=== PATIENT | female | born 1970 | race Hispanic/Latino ===

== ENCOUNTER 2021-10-27 10:21 | Emergency (ER) | payer BC, OTHER ==
[~2021-10-27] VITALS: Ht 162.6 cm; Wt 76.2 kg
[2021-10-27] MEDS ORDERED: ONDANSETRON 4MG INJ IVP ONE (11:00)
[2021-10-27] MEDS ORDERED: KETOROLAC 30MG VIAL (30MG/ML) IVP ONE (11:00)
[2021-10-27] MEDS ORDERED: MORPHINE 4 MG SYG IVP ONE (11:00)
[2021-10-27] MEDS ORDERED: 0.9%NACL 1000ML 1,000 ML IV ONE (11:00)
[2021-10-27 11:09] LABS: BASOPHILS % (AUTO) 0.4 % (0.0-5.0); EOSINOPHILS % (AUTO) 1.1 % (0.0-8.0); HEMATOCRIT 41.2 % (36-48); MEAN CORPUSCULAR HEMOGLOBIN 28.9 pg (27.0-33.0); MEAN CORPUSCULAR VOLUME 84.9 fL (79-99); MONOCYTES % (AUTO) 6.3 % (3.0-13.0); NEUTROPHILS % (AUTO) 72.8 % (40.0-77.0); PLATELET COUNT (AUTO) 268 K/uL (130-400); RED BLOOD CELL COUNT(AUTO) 4.85 MIL/uL (4.00-5.50); RED CELL DISTRIBUTION WIDTH 12.3 % (11.0-15.5); WHITE BLOOD COUNT (AUTO) 7.5 K/uL (4.8-10.8)
[2021-10-27 11:12] LABS: APPEARANCE,URINE CLEAR (CLEAR); BILIRUBIN,URINE NEGATIVE (NEGATIVE); COLOR,URINE YELLOW (YELLOW); GLUCOSE, URINE (UA) >=1000 mg/dL (NEGATIVE); KETONES,URINE 15 mg/dL (NEGATIVE); LEUKOCYTE ESTERASE ,URINE NEGATIVE (NEGATIVE); NITRATE,URINE NEGATIVE (NEGATIVE); OCCULT BLOOD,URINE NEGATIVE (NEGATIVE); PROTEIN,URINE NEGATIVE (NEGATIVE); UROBILINOGEN,URINE 0.2 mg/dL (0.2-1.0)
[2021-10-27 11:27] LABS: ALBUMIN 3.3 g/dL (3.5-5.0); CREATININE 0.9 mg/dL (0.5-1.5); POTASSIUM 3.8 mmol/L (3.5-5.1); TOTAL PROTEIN, SERUM 7.1 g/dL (6.0-8.3)
[2021-10-27 11:55] LABS: BACTERIA,URINE Rare /HPF (None Seen); RBC,URINE None Seen /HPF (0-1); WBC,URINE None Seen /HPF (0-1)
[2021-10-27] MEDS ORDERED: INSULIN HUMULIN R 100 UNIT/ML 3ML SQ ONE (12:00)
[2021-10-27] MEDS ORDERED: HYOS0.124 SL (13:23)
[2021-10-27 13:50] VITALS: BP 126/67
== END 2021-10-27 13:53 | disposition home or self-care (01) ==
LOC: EDH 10:21
DX: E11.65 Type 2 diabetes mellitus with hyperglycemia (principal); R10.30 Lower abdominal pain, unspecified; Z79.1 Long term (current) use of non-steroidal anti-inflammatories (NSAID); Z93.3 Colostomy status
CPT/HCPCS: 99284; 74176; 96374; 96375; 96361; 80053; 83690; 85025; 82948; 81001; 36415; 96372; J1815; J7030; J2405; J2270; J1885